=== PATIENT | female | born 1970 | race Caucasian/White ===

== ENCOUNTER 2021-01-21 11:08 | Emergency (ER) | payer OTHER ==
[~2021-01-21] VITALS: Ht 167.6 cm; Wt 94.8 kg
[~2021-01-21 11:08] MED LIST: CIPRO500 MG PO; FERROUS SULFAT325 MG PO; FLAGYL500MG PO; PERCOCET 5/3251 TAB PO; PROBIOTIC ACID1 EAC2 PO
[2021-01-21] MEDS ORDERED: NEURONTIN300 MG (11:21)
[2021-01-21] MEDS ORDERED: VOLTAREN100 GM (11:21)
[2021-01-21] MEDS ORDERED: PEPCID AC20 MG PO (17:44)
[2021-01-21] MEDS ORDERED: LEVSIN/SL0.125 MG SL (17:44)
== END 2021-01-21 18:07 | disposition home or self-care (01) ==
LOC: ER 11:08
DX: R10.84 Generalized abdominal pain (principal)